=== PATIENT | female | born 1960 | race Asian ===

== ENCOUNTER → 2019-04-02 | Outpatient (CLI) | payer OTHER | END | disposition home or self-care (01) | LOC: NUC 11:39 | DX: C73 Malignant neoplasm of thyroid gland (principal) | CPT/HCPCS: 78018 ==

== ENCOUNTER → 2019-04-08 | Outpatient (CLI) | payer OTHER | END | disposition home or self-care (01) | LOC: NUC 12:26 | DX: C73 Malignant neoplasm of thyroid gland (principal) | CPT/HCPCS: 79005 ==